=== PATIENT | female | born 1995 | race Caucasian/White ===

== ENCOUNTER 2017-10-04 15:30 | Inpatient (IN) ==
--- OUTSIDE RECORDS SUMMARY | 2017-10-04 15:35 | External Medical Summary | Continuity of Care Document ---
:1995 Author Organization [facility] Address [address] [place], [place] [id number] Phone Allergies, Adverse Reactions, Alerts Substance Reaction Severity Status aspirin Difficulty breathingHives Unknown Active Medications Medication Instructions Dosage Effective Dates Status Comments (start - stop) 28 mg take 1 tablet by Not Available - Active iron-800 mcg oral route every tablet day Problems Condition Effective Dates (start - stop) Clinical Status Encounter For Screening For - Malformations 31 weeks gestation of - Nicotine dependence, cigarettes, - uncomplicated Pap Smear Screening, Cervix - Encounter for suprvsn of normal - , first trimester 9 weeks gestation of - Nicotine dependence, cigarettes, - uncomplicated Smoking (tobacco) complicating - , second trimester Encounter for suprvsn of normal - , second trimester 24 weeks gestation of - Nicotine dependence, cigarettes, - uncomplicated Smoking (tobacco) complicating - , third trimester 31 weeks gestation of - Smoking (tobacco) complicating - , first trimester Encounter for suprvsn of normal - , first trimester 12 weeks gestation of - Smoking (tobacco) complicating - , second trimester Encounter for suprvsn of normal - , second trimester 20 weeks gestation of - Smoking (tobacco) complicating - , second trimester Encounter for suprvsn of normal - , second trimester 16 weeks gestation of - Smoking (tobacco) complicating - , third trimester Encounter for suprvsn of normal - , third trimester Encounter For Screening For - Malformations 33 weeks gestation of - Encounter for suprvsn of normal - , second trimester 27 weeks gestation of - Encounter for suprvsn of normal - , second trimester Encounter For Screening For - Malformations 20 weeks gestation of - Encounter for suprvsn of normal - , third trimester Encounter For Screening For - Malformations 28 weeks gestation of - Asthma Active Depression Active Procedures Procedure Date Ultrasnd preg uterus, flwup/repeat Results Test Name Date and Time Measure Units Reference Range Abnormal Flag Comments Unknown Advance Directives Directive Yes / No Effective Date File Name Unknown Encounters Encounter Practice Location Reason(s) Diagnoses Date Provider Care Team Description For Visit Members [place] Smoking (tobacco) Aug- Sobbing In Womens complicating [facility] [place], , third 8 700 [address] [facility] [address], r for suprvsn of [facility], normal , [place], [place], third [id number], trimesterEncounte 120, [place] r For Yvan, tel:[phone] Screening For [place], [id number], weeks gestation [place]. of tel: [phone] [place] Nicotine Mar-2 Sobbing In Womens dependence, [facility] [place], cigarettes, 8 700 [address] uncomplicatedSmok [facility] [address], ing (tobacco) [facility], complicating [facility], [place], , third [id number], [email or web address] weeks 120, [place] gestation of Yvan, tel:+316 [place], [phone], [place]. tel: [phone] [place] Encounter For Mar-2 Sobbing In Womens Ultrasound [facility] [place], Screening For 8 700 [address] [email or web address] Medical 1522, weeks gestation [facility], of [place], [place], [address] , 120, [place] Yvan, tel: [place], 114, [place]. tel: [phone] [place] Encounter for Mar-1 Sobbing Referring In Womens suprvsn of normal 2-201 [facility]. Provider: Health [place], , third 8 700 [address] [facility] Sobbing L, 1522, r For Center [address] [place] [address], Screening For [facility] [place], [email or web address] Center [id number], weeks gestation 120, Drive [place] of [place], [address], tel: [place], [place], [address], [place], [address]. [place]. tel: tel: [phone] [place] Encounter for Mar-0 Sobbing In Womens suprvsn of normal 7-201 [facility] [place], , second 8 700 [address] [email or web address] weeks Medical 1522, gestation of [facility], [place], [place], [address] , 120, [place] Yvan, tel: [place], 114, [place]. tel: [phone] [place] Nicotine Feb-1 Sobbing In Womens dependence, 2-201 [facility] [place], cigarettes, 8 700 PO Box [facility] 1522, ing (tobacco) [facility], complicating [place], [place], , second [id number], trimesterEncounte 120, [place] r for suprvsn of [place], tel: normal , [place], second [id number], [id number] weeks [place]. gestation of tel: [phone] [place] Smoking (tobacco) Pito-1 Sobbing In Womens complicating 5-201 [facility] [place], , second 8 700 [facility], r for suprvsn of [facility], normal , [place], [place], second [id number], [email or web address] weeks 120, [place] gestation of Yvan, tel: [place], 114, [place]. tel: [phone] [place] Encounter for Pito-1 Sobbing In Womens Ultrasound suprvsn of normal 5-201 [facility] [place], , second 8 700 [address] [facility] [address]22, r For Center [place], Screening For [place], [place], [id number], weeks gestation 120, [place] of [place], tel:+[phone] [place], [address], [place]. tel: [phone] [facility] [place] Smoking (tobacco) Dec-1 Sobbing In Womens complicating 8-201 [facility] [place], , second 7 700 [facility] 1522, r for suprvsn of [facility], normal , [place], [place], second [id number], [email or web address] weeks 120, [place] gestation of [place], tel:+316 [place], 114, [place]. tel: [phone] [facility] [place] Smoking (tobacco) Nov-2 Sobbing In Womens complicating 0-201 [facility] [place], , first 7 700 [address] [facility]22, r for suprvsn of [facility], normal , [place], [place], first [email or web address] [address] [id number], weeks gestation 120, [place] of [place], tel:+316 [place], [address], [place]. tel: [phone] [facility] [place] Nicotine Oct-2 Sobbing In Womens dependence, 6-201 [facility] [place], cigarettes, 7 700 [address] uncomplicatedPap Medical 1522, Smear Screening, [facility], [facility] [place], [place], for suprvsn of [id number], normal , 120, [place] first trimester9 Yvan, tel:+316 [place] [address], [place]. tel: [phone] Family History Family Member Diagnosis Age At Onset No family history of Thyroid Disorder No family history of Cardiovascular Disease No family history of Hypertension No family history of Osteoporosis No family history of Ovarian Cancer No family history of Lung Disease No family history of Colon Cancer No family history of Epilepsy No family history of Diabetes No family history of Kidney Disease No family history of Breast Cancer No family history of Stroke Immunizations Vaccine Date Status Comments Tdap completed Source: New Immunization Record Payers Payer name Insurance type Covered libertarian ID Authorization(s) [employer] [place] - Medicaid MC [id number] [employer] [place] - Medicaid MC [id number] Social History Type Description Quantity Date Captured Unknown Vital Signs Date / Height Weight BMI Pulse Blood Temperature Respiratory Body Head BMI Time: Rate Pressure Rate Surface Circumference percentile Area Unknown Chief Complaint And Reason For Visit Unknown Chief Complaint And Reason For Visit Reason For Referral Reason For Referral Unknown Plan Of Care Date Type Action Status Goal Tobacco cessation counseling completed Appointment Malu Eason BOOKED Future Order: Radiology Order Ultrasound OB Follow-up ([id number]) Ordered Future Order: Radiology Order Complete OB Ultrasound > 14 Ordered Weeks ([id number]) Date Type Problem Goal Intervention Status Start Date Unknown. History Of Present Illness Encounter Date Complaint History Of Present Illness This patient has no known history of present illness Functional Status Encounter Date Functional Assessment Cognitive Assessment Unknown Medications Administered Medication Instructions Dosage Effective Dates (start - stop) Status Comments Drug Treatment Unknown Instructions Date Instruction Additional Information HIV and other routine tests risk factors identified by history anticipated course of care nutrition and weight gain counseling, special diet toxoplasmosis precautions (cats / raw meat) sexual activity exercise indications for ultrasound influenza vaccine environmental / work hazards travel tobacco (ask, advise, assess, assist and arrange) use of any medications (including supplements, vitamins, herbs, OTC drugs) smoking counseling domestic violence seat belt use childbirth classes / hospital facilities hospital registration genetic testing new ob handbook
[2017-10-04] MEDS ORDERED: LIDOCAINE 1% (10mg/ml) 2mL INJ PF SDV ID PRN (15:48)
[2017-10-04] MEDS ORDERED: METHYLERGONOVINE 0.2 MG/ML INJECTION IM PRN (15:48)
[2017-10-04] MEDS ORDERED: CALCIUM CARBONATE Chewable 500mg TABLET PO PRN ×2 (15:48→21:11)
[2017-10-04] MEDS ORDERED: CARBOPROST 250 MCG/ML INJECTION IM PRN (15:48)
[2017-10-04] MEDS ORDERED: ACETAMINOPHEN 500 MG TABLET PO PRN ×2 (15:48→21:11)
[2017-10-04] MEDS ORDERED: MAG-AL + SIM ORAL LIQUID 30ml PO PRN ×2 (15:48→21:11)
[2017-10-04] MEDS ORDERED: OXYTOCIN DRIP 30 UNIT/500 ML ML IV PRN (15:51)
[2017-10-04] MEDS ORDERED: D5LR 1,000 ML IV PRN (15:51)
[2017-10-04 16:41] VITALS: BMI 32.2
[2017-10-04] MEDS: LR 1,000 ML IV PRN ×2 (16:46→19:15)
[2017-10-04] MEDS ORDERED: ONDANSETRON 4 MG/2 ML INJECTION IVP PRN (20:44)
[2017-10-04] MEDS ORDERED: DiphenhydrAMINE 50 MG/ML INJECTION IVP PRN (20:44)
[2017-10-04] MEDS ORDERED: ROPIVACAINE 1% 10MG/ML INJ 200 MG, SUFentanil 50 MCG in NS 100 ML EPI PRN (20:44)
[2017-10-04] MEDS ORDERED: NALOXONE 0.4 MG/ML INJECTION IVP PRN (20:44)
--- NOTE | 2017-10-04 20:44 | Anesthesia Preoperative Report ---
Anesthesia Epidural/Spinal Rec - Date and Time Date: 10/04/17 Procedure: Labor Epidural Plan: Epidural - Vital Signs /Para: P:1 - Medictaions & Allergies Inpatient Medications: Current Medications Acetaminophen (Tylenol) 500 - 1,000 mg PO Q4H PRN PRN Reason: Pain Al Hydroxide/Mg Hydroxide (Maalox Plus) 30 ml PO Q3H PRN PRN Reason: Indigestion Calcium Carbonate (Tums) 500 - 1,000 mg PO Q2H PRN PRN Reason: Indigestion Carboprost Tromethamine (Hemabate) 250 mcg IM O PRN PRN Reason: .Downtime Lactated Ringer's (Lactated Ringers) 1,000 mls @ 999 mls/hr IV .Q1H1M PRN Last Infusion: 10/04/17 17:21 Dose: Infused Dextrose/Lactated Ringer's (Dextrose 5%-Lactated Ringers) 1,000 mls @ 125 mls/ hr IV .Q8H PRN PRN Reason: Labor Last Admin: 10/04/17 16:46 Dose: 125 mls/hr Oxytocin (Pitocin Drip) 30 unit in 500 mls @ 2 mls/hr IV .Q24H PRN; Protocol PRN Reason: Induction/Augmentation Last Admin: 10/04/17 16:45 Dose: 2 mls/hr Lidocaine HCl (Xylocaine-Mpf 1% Vial) 0.2 mg ID O PRN PRN Reason: IV Start Methylergonovine Maleate (Methergine) 0.2 mg IM O PRN Misoprostol (Cytotec) 800 mcg CO ONCE PRN Allergies/Adverse Reactions: Allergies Allergy/AdvReac Type Severity Reaction Status Date / Time aspirin Allergy Verified 07/14/17 09:33 - Home Medications Home Medications: Home Medications Medication Instructions Recorded Confirmed Type 1 tab PO DAILY tab 04/23/17 07/14/17 History vitamin,calcium,fvznhpfv-iyee-nqlqb acid tablet Amoxicillin 1 tab PO TID #30 tab 07/14/17 Rx - Medical History Respiratory: Reports: Asthma Cardiovascular: DENIES: Hypertension Neuro/Musculoskeletal: Reports: Depression Renal/Endocrine: DENIES: Diabetes Mellitus Type 2 Other History: Reports: Now (10/21/17) - Surgical History GI Surgery/Treatments: Reports: Appendectomy Reproductive Surgery/Treatment: Reports: Other (procedure related to abnormal pap/pt unable to name) Anesthesia Reactions: None Hx Family Anesthesia Reaction: No History of Motion Sickness: No - Social History Smoking Status: Former smoker Second Hand Exposure: No Substance Use Type: does not use Alcohol Intake Frequency: does not drink - Pertinent Findings Lab Data: CBC and BMP 10/04/17 16:26 - Physical Exam Respiratory Exam: lungs clear Cardiovascular Exam: regular rate and rhythm - Airway Assessment Mallampati Score: II TMD: 3 Fingerbreadths Neck Extension: good Overall Assessment: may be difficult mask vent, may be difficult intubation - ASA ASA Score: 2 - Discussion Discussion: Discussed risks/options/alternatives of anesthesia and questions answered. Patient consents. Nursing pain assessment noted. Anesthesia Discussion: spouse Attestation Statement: Prior to the delivery of any anesthetic medication, I examined the patient, developed the plan, obtained the patient's consent and discussed the risk and benefits of the procedure with the patient/guardian.
[2017-10-04] MEDS ORDERED: HYDROCORTISONE 2.5% CREAM 30gm RECTALLY PRN (21:11)
[2017-10-04] MEDS ORDERED: DiphenhydrAMINE 25 MG CAPSULE PO PRN (21:11)
--- NOTE | 2017-10-04 21:11 | OB/GYN Procedure Note ---
Delivery date: 10/04/17 Induction method: per pitocin protocol Delivery monitor: external FHT, external uterine Route of delivery: vacuum extraction Indication for instrumentation: maternal exhaustion Episiotomy description: None Laceration description: Perineal - 2nd Degree Delivery repair: vicryl Anesthesia type: Epidural - Baby 1 gender: Female presentation: Vertex Placenta delivery description: Spontaneous cord vessel description: 3 Vessels at 1 minute: 8 at 5 minutes: 9
[2017-10-04] MEDS: IBUPROFEN 800 MG TABLET PO PRN (21:53)
[2017-10-05] MEDS ORDERED: ACETAMINOPHEN 325 MG TABLET PO PRN
--- NOTE | 2017-10-05 08:58 | Anesthesia Postoperative Note ---
- Date and Time Date: 10/05/17 Time: 08:58 - Status Patient Participated in Evaluation: Patient Participated in Person Vital Signs: Temperature 98.0 F 10/05/17 05:25 Pulse Rate 73 10/05/17 05:25 Respiratory Rate 16 10/05/17 05:25 Blood Pressure 117/76 10/05/17 05:25 Pulse Oximetry 100 10/05/17 05:25 Respiratory Function: Airway Patent Cardiovascular Function: Regular Pulse Mental Status: Alert and Oriented Pain Intensity: 2 Hydration: Taking PO Fluids Complications During Recover: None Apparent - Follow-Up Instructions Instructions: Per Surgeon
[2017-10-05] MEDS: IBUPROFEN 800 MG TABLET PO PRN (09:37)
[2017-10-05] MEDS: Oxycodone/Acetaminophen 5/325 1 TAB PO PRN ×2 (09:37→15:29)
[2017-10-05] MEDS: DOCUSATE CALCIUM 240 MG CAPSULE PO SCH (09:37)
--- NOTE | 2017-10-05 14:37 | OB/GYN Progress Note ---
OB-PP Progress Note - General PPD1 Maternal Group B Strep: Negative Maternal blood type: B+ Maternal Rubella Status: Immune - Subjective Date: 10/05/17 Lochia: Minimal Pain: controlled Voiding: voiding Nausea or Vomiting Present: No - Objective Vital Signs: Last Vital Signs Temp 98.0 F 10/05/17 13:16 Pulse 82 10/05/17 13:16 Resp 16 10/05/17 13:16 BP 116/58 10/05/17 13:16 Pulse Ox 97 10/05/17 13:16 Urine Output: good General: alert and oriented Cardiovascular: regular rate,rhythm Respiratory: non-labored Abdomen: fundus firm, non-tender Extremities: non-tender Side: bilateral Site: leg Edema Degree: 2+ Laboratory: Laboratory Results - last 24 hr 10/04/17 16:26 WBC 8.5 RBC 3.60 L Hgb 10.8 L Hct 32.8 L MCV 91.1 MCH 30.0 MCHC 32.9 RDW Std Deviation 44.0 Plt Count 158 MPV 12.4 - Assessment Assessment: SP, - Plan Plan: routine care
[2017-10-06] MEDS: IBUPROFEN 800 MG TABLET PO PRN (03:13)
[2017-10-06 04:07] VITALS: BP 116/62; PULSE 93; RESP 16; TEMP 98.3; O2SAT 98
--- NOTE | 2017-10-06 08:06 | OB/GYN Progress Note ---
OB-PP Progress Note - General PPD2 Maternal Group B Strep: Negative Maternal blood type: B+ Maternal Rubella Status: Immune - Subjective Date: 10/06/17 Lochia: Minimal Pain: controlled Voiding: voiding Nausea or Vomiting Present: No - Objective Vital Signs: Last Vital Signs Temp 98.3 F 10/06/17 03:15 Pulse 93 10/06/17 03:15 Resp 16 10/06/17 03:15 BP 116/62 10/06/17 03:15 Pulse Ox 98 10/06/17 03:15 General: alert and oriented Cardiovascular: regular rate,rhythm Respiratory: non-labored Abdomen: fundus firm, non-tender Extremities: non-tender - Assessment Assessment: SP, VAVD - Plan Plan: routine care, discharge home
--- NOTE | 2017-10-06 08:09 | Labor and Delivery Note ---
DATE OF SERVICE: 10/04/2017 DELIVERY NOTE We had a vacuum-assisted vaginal delivery over intact perineum with epidural anesthesia. This was a viable female infant named Lashanda, Apgars 8/9, weight 3200 g. There was spontaneous delivery of the placenta. Estimated blood loss was 200 mL and there was repair of a second-degree perineal laceration with 2-0 Vicryl. This is a 2, para 1 with a prior vaginal delivery at 37 weeks and 2 days who presented to [facility] Child at [facility] with a report of vaginal leaking and possible rupture of membranes. Her evaluation for rupture of membranes was positive. She was noted to be 2, 70, -2 and not juan carlos. She was then induced per the Pitocin protocol, got to a max of 6 on the Pitocin and rapidly progressed from 5 cm to AC to complete. She was noted to be OP when she started pushing and had maternal exhaustion. The patient requested assisted vaginal delivery and she was counseled as to the risk of vacuums versus forceps and decision was made for a vacuum. At vacuum delivery there was one pull with one contraction, no pop-offs and a maximum of 50 mmHg of pressure. Mother and infant tolerated procedure well and were taken to the floor for recovery. JEREMÍAS
[2017-10-06] MEDS: DOCUSATE CALCIUM 240 MG CAPSULE PO SCH (10:28)
== END 2017-10-06 10:40 | disposition home or self-care (01) | DRG 775 ==
LOC: MC 15:31 → OBOBS 15:31 → MC 15:50
PROVIDERS: ADMIT Obstetrics & Gynecology; ATTEND Obstetrics & Gynecology